=== PATIENT | male | born 1960 | race Caucasian/White ===

== ENCOUNTER → 2019-04-20 | Emergency (ER) | payer BC ==
[~2019-04-20] VITALS: Ht 172.7 cm; Wt 70.0 kg
[~2019-04-20] MED LIST: CYCL10TA7 PO; HYDR-4011 PO; HYDROCODONE/APAP (5/325) TAB PO ONE; NAPR-985 PO; ONDANSETRON (ODT) 4 MG TAB ODT STA
[2019-04-20 14:41] VITALS: BP 136/74; PULSE 106; RESP 19; Ht 172.7 cm; Wt 70.0 kg
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
== END | disposition home or self-care (01) ==
LOC: FTE 14:40
DX: M54.9 Dorsalgia, unspecified (principal); I10 Essential (primary) hypertension
CPT/HCPCS: 99283